=== PATIENT | female | born 1990 | race Caucasian/White ===

== ENCOUNTER 2020-10-21 20:29 | Emergency (ER) | payer OTHER ==
[2020-10-21 20:39] VITALS: BMI 34.5
[2020-10-21] MEDS ORDERED: ACETAMINOPHEN 325 MG TABLET (FP) ONE (20:41)
[2020-10-21] MEDS ORDERED: ACETAMINOPHEN 325 MG TABLET (FP) PO ONE (20:45)
[2020-10-21] MEDS ORDERED: METOCLOPRAMIDE HCL INJECTION 10 MG/2 ML VIAL IVPB ONE (21:04)
[2020-10-21] MEDS ORDERED: SODIUM CHLORIDE 1,000 ML IV SCH (21:15)
[2020-10-21] MEDS ORDERED: METOCLOPRAMIDE HCL INJECTION 10 MG/2 ML VIAL ONE (22:34)
[2020-10-21 22:39] LABS: BASO % 0.5 % (0-2.0); EOS % 0.1 % (0-4.5); HEMATOCRIT 38.6 % (32.4-45.2); HEMOGLOBIN 12.5 GM/dL (10.7-15.3); LYMPH % 32.2 % (8-40); MCH 27.4 pg (25.7-33.7); MCHC 32.5 g/dl (32.0-36.0); MEAN CELL VOLUME 84.3 fl (80-96); MONO % 11.6 % (3.8-10.2); NEUT % 55.6 % (42.8-82.8); PLATELET COUNT 259 K/MM3 (134-434); RBC 4.58 M/mm3 (3.60-5.2); RDW 12.7 % (11.6-15.6); WHITE BLOOD COUNT 4.7 K/mm3 (4.0-10.0)
[2020-10-21 22:48] LABS: INR 1.16 (0.83-1.09); PROTHROMBIN TIME (PATIENT) 14.2 SEC (9.7-13.0)
[2020-10-21 23:06] LABS: POTASSIUM 4.6 mmol/L (3.5-5.1)
[2020-10-21 23:07] LABS: CALCIUM 8.7 mg/dL (8.5-10.1)
[2020-10-21 23:08] LABS: ALBUMIN 3.2 g/dl (3.4-5.0)
[2020-10-21 23:10] LABS: CREATININE 0.7 mg/dL (0.55-1.3)
[2020-10-21 23:12] LABS: TOT PROT 6.8 g/dl (6.4-8.2)
[2020-10-21 23:14] LABS: BILIRUBIN,TOTAL 0.3 mg/dL (0.2-1)
[2020-10-21 23:27] VITALS: BP 113/78; PULSE 93; TEMP 98.7
== END 2020-10-22 00:15 | disposition home or self-care (01) ==
LOC: JER 20:29
PROC: 3E033NZ Introduction of Analgesics, Hypnotics, Sedatives into Peripheral Vein, Percutaneous Approach (ICD-10-PCS; principal; 2020-10-21)
PROC: 3E033GC Introduction of Other Therapeutic Substance into Peripheral Vein, Percutaneous Approach (ICD-10-PCS; 2020-10-21)
DX: Z11.52 Encounter for screening for COVID-19 (principal)
CPT/HCPCS: 36415; 71046-TC-FY; 80053; 82728; 83605; 83615; 84703; 85025; 85610; 86140; 87804; 93005; 93010; 99285-25